=== PATIENT | male | born 1945 | race Caucasian/White ===

== ENCOUNTER 2018-10-29 11:53 | Inpatient (IN) | payer MEDICARE, SELFPAY ==
[2018-10-14 13:38] VITALS: BMI 32.5
[2018-10-29] VITALS (13 sets, daily range): BP systolic 112–176; BP diastolic 61–97; PULSE 68–88; RESP 11–20; TEMP 36.2–36.8; O2SAT 91–98; BMI 32.5
--- NOTE | 2018-10-29 | PATH_ITS ---
[facility] Accession Number: [id number] . 01 Material submitted: . LEFT PROXIMAL FEMURAL LESION . 01 Diagnosis: Left Proximal Femoral Lesion, Biopsy: Fragments of trabecular bone and normocellular for age marrow (30% cellularity) with maturing trilineage hematopoiesis. Few nodular interstitial lymphoid aggregates, reactive-type, also present, see microscopic description. No increased immature cells/blasts or increased plasma cells are identified. Negative for carcinoma. MRV/11/04/2018 . 01 Electronically signed: . Curt Vaz MD, Pathologist NPI- [id number] . 01 Gross description: . Received in formalin, labeled left proximal femoral lesion, are multiple fragments of vasquez gritty hard tissue (2.7 x 2.0 x 0.2 cm in aggregate). Filtered, decalcified, and entirely submitted in cassette A1. ([id number]) /MRV . 01 Microscopic: . Microscopic examination reveals normo-cellular marrow and a few scattered small interstitial and nodular lymphoid aggregates composed of small and mature lymphocytes. On immunohistochemical workup, these aggregates are composed of mixed lymphocytes, predominantly T lymphocytes (positive for CD3) and fewer B lymphocytes (positive for CD20). . Plasma cells are not increased and no increased immature cells/blasts population is present. . There is no evidence for carcinoma (the panepithelial marker VIKTOR is negative). D eeper levels have been examined. . Clinical correlation and correlation with radiologic studies is needed to ensure that the area of interest has been adequately sampled. . * This test was developed and its performance characteristics determined by [employer]. It has not been cleared or approved by the U.S. Food and Drug Administration. The FDA has determined that such clearance or approval is not necessary. This test is used for clinical purposes. It should not be regarded as investigational or for research. . 01 Pathologist provided ICD-10: M84.9 . 01 CPT . 198985, I15801, J89830 Performed at: [address] [facility] [address], [employer] [place], [place] [id number] MD Mg Smith MD Phone: [phone]
[2018-10-29] MEDS: ACETAMINOPHEN 325 MG TABLET 975 MG PO ×2 (12:47→20:45)
[2018-10-29] MEDS: CELECOXIB 200 MG CAPSULE PO (12:48)
[2018-10-29] MEDS: PREGABALIN 75 MG CAPSULE PO (12:48)
--- NOTE | 2018-10-29 13:00 | DI.RAD.S_ITS ---
PROCEDURE: XR HIP W PEL IF DONE LT 2V INDICATIONS: LEFT TOTAL HIP TECHNIQUE: AP pelvis and lateral view of the left hip acquired. COMPARISON: [facility], CR, [id number] W PEL IF PERFORMED, 12/26/2016, 16:05. FINDINGS: Bones: Patient is status post left hip arthroplasty, with hardware components in expected positions. The hip joint appears congruent. The visualized bony structures appear intact. Soft tissues: Overlying postoperative changes are noted. No suspicious soft tissue densities. IMPRESSION: Prior right hip arthroplasty, new left hip arthroplasty established in normal position with a surgical drain overlying the operative bed. Dictated by: Everardo Mari M.D. on 10/30/2018 at 7:46 Approved by: Everardo Mari M.D. on 10/30/2018 at 7:47
--- NOTE | 2018-10-29 13:00 | DI.RAD.S_ITS ---
PROCEDURE: XR PELVIS 1-2V INDICATIONS: INNER OP TECHNIQUE: Intra-operative view of the pelvis and hip acquired. COMPARISON: [facility], , PELVIS 1 OR 2 VIEWS, 12/26/2016, 14:57. FINDINGS: Bones: Intraoperative devices prior to placement of a left hip prosthesis, with the components in the expected positions. No fractures or suspicious bony lesions. Prior right hip arthroplasty hardware can be seen. Soft tissues: Overlying surgical retractors are present, along with other intraoperative changes. IMPRESSION: Normal intraoperative examination. Dictated by: Reggie Velázquez M.D. on 10/29/2018 at 16:53 Approved by: Reggie Vleázquez M.D. on 10/29/2018 at 16:54
[2018-10-29] MEDS: VANCOMYCIN 1,000 MG/200 ML FROZ.PIGGY 200 MG IV (14:02)
[2018-10-29] MEDS: LACTATED RINGERS 1,000 ML 42 ML IV ×2 (14:32→17:09)
--- NOTE | 2018-10-29 14:35 | PM.PREOP ---
Pre-operative Note Interval Note History & Physical reviewed/Exam performed by Physician: Yes Changes to H&P: No
--- NOTE | 2018-10-29 14:38 | P.OP_ITS ---
Operative Date/Time/Diagnoses Date of procedure: 10/29/18 Time of procedure: 14:58 Pre-op diagnosis: left hip osteoarthritis, sclerotic lesion left proximal femur Post-op diagnosis: same Procedure & Clinicians Procedure: left total hip arthroplasty, open left femoral biopsy intramedullary Same procedure as scheduled: Yes Indications: The patient has had progressively worsening left hip pain with radiographic changes consistent with arthritis. Non-operative management has failed and the patient has requested total hip replacement. He also has a sclerotic lesion on his left proximal femur which has been worked up and is felt to be benign. I told him that we will do a biopsy if indicated. The risks , benefits and alternatives to surgery were discussed with the patient prior to proceeding. Risks discussed included, but were not limited to, failure to relieve pain, leg length discrepancy, dislocation, stiffness, infection, nerve damage, deep venous thrombosis, pulmonary embolism, stroke, coma, heart attack, permanent paralysis and , as well as the potential need for eventual revision of the prosthetic. Surgeon: Neida Mariscal Field Sales Representative: Ana Moraes Anesthesia Type: Spinal Operative Notes Findings: Severe left hip osteoarthritis, adequate stability Closure Type: primary Prosthetic devices, grafts, tissues, transplants, or devices: mariscal and nephew anthology standard offset size 7, 56 mm R3 cup, 56 by 36, +0 Applied: drain(s) Estimated Blood Loss (mL): 250 Blood products transfused: none Procedure in detail: The patient was seen in the pre-operative area, where the patient identified the left hip as the operative site and this was marked with my initials. The patient received pre-operative antibiotics and was taken to the operating room and placed on the operative table in the right lateral decubitus position after satisfactory anesthesia. A curb and gutter laborer out was performed. The left leg was prepared from the ankle to the iliac crest with ChloroPrep in the usual fashion and draped through sterile drapes. The hip was approached through an approximately 20 cm incision centered over the greater trochanter and curving gently posteriorly as it went proximally. This was carried sharply to the fascia liz, which was divided and retracted with a self retaining retractor. The trochanteric bursa was excised with care being taken to avoid the sciatic nerve, which was identified and protected throughout the case. The short external rotators were incised and the capsulomuscular flap was raised and tagged for later repair. The hip was dislocated, and a femoral neck osteotomy performed approximately 15 mm above the lesser trochanter. Retractors were placed around the femur. The canal was opened with a box cutting osteotome, followed by a T handled reamer and a lateralizing reamer. The chili pepper broach was then used. A long pituitary rongeur was then used to reach down into the inter medullary canal along the lateral femoral cortex. There was an abnormal lesion in the inter medullary canal which was fairly sclerotic. A biopsy was obtained using a combination of the pituitary as well as a reverse cutting curette. The lesion was noted to be hard. A biopsy was sent to pathology in formalin. This was then followed by sequential broaching until there was good stability of the broach in the femur. I specifically examined the inter medullary canal to make sure that the lesion was not pushing my stem into varus. A small amount of residual cortical lesion was noted to be in the inter medullary canal but did not appear to be interfering with the stability or position of the prosthesis. Retractors were placed to expose the acetabulum. The labrum and central soft tissues were removed. Reaming was performed initially going up in 2 mm increments, then 1 mm increments until good bite was obtained with an odd sized reamer. The cup 1 mm larger than the last reamer was then inserted using the appropriate anteversion guides. A trial neutral liner was placed. The broach was placed in the canal. A trial head and neck were then placed and the hip relocated and checked for leg length and stability. An intraoperative film confirmed the component position and no evidence of fracture. The femoral prosthesis appeared to bypass the lesion without being pushed into varus. The patient was stable in the position of sleep, of squatting, and could be put through a range of motion with 45 degrees internal rotation without dislocation. At 90 degrees flexion, internal rotation to 70 degrees was possible before dislocation. This was felt to be satisfactory and the appropriate components were opened, and the trials were removed. The acetabular liner was impacted into position. The final stem was then impacted into the prepared femoral canal. A brief Betadine soak was performed while trialing with head options. The hip was meticulously irrigated with normal saline. Finally the femoral head was impacted onto the stem. The acetabulum was cleared of all material and the hip relocated one final time. The capsulomuscular flap was then repaired to the greater trochanter though an awl hole using the tag sutures. The short external rotators were repaired with a nonabsorbable suture. A deep drain was placed and brought out anteriorly. The fascia liz was closed with vicryl. The subcutaneous layer was closed with barbed sutures and SteriStrips. An Aquacel Ag dressing was applied and the patient was taken to recovery having tolerated the procedure well. Complications: none Condition: stable Disposition: Acute Care Plan for aftercare: The patient will be maintained on a standard total hip replacement protocol with weight bearing as tolerated and posterior hip precautions. The patient will receive Aspirin and sequential compression devices for DVT prophylaxis. The patient will be discharged home when safe for the home environment. Check pathology at postop appointment.
[2018-10-29] MEDS: CEFAZOLIN 2 GM/100 ML FROZ.PIGGY IV ×2 (15:20→23:56)
--- NOTE | 2018-10-29 15:53 | SUR.OPER ---
Right Lateral on padded OR bed. Gel axillary roll. Arms secured on padded armboard with pillow supporting top arm. Padded hip positioner braces x4 - anterior and posterior chest and pelvis. Additional gel pad used anterior pelvis. Gel pad under bottom leg from knee to foot and secured with tape over sheet.
[2018-10-29] MEDS: BUPIVACAINE 0.25% W/ EPI VIAL 50 ML INJ (15:59)
[2018-10-29] MEDS: BUPIVACAINE LIPOSOME 266 MG/20 ML VIAL INJ (16:00)
[2018-10-29] MEDS: TRANEXAMIC ACID 1,000 MG VIAL 2000 MG INJ ×2 (16:01→17:08)
[2018-10-29] MEDS: POVIDONE-IODINE 15 ML, SODIUM CHLORIDE 0.9% 250 ML TOP (16:01)
[2018-10-29] MEDS: SODIUM CHLORIDE IRRIG SOLUTION 250 ML, EPINEPHrine 1 MG IRR (16:02)
[2018-10-29] MEDS: LACTATED RINGERS 1,000 ML 125 ML IV (18:49)
--- NOTE | 2018-10-29 19:07 | PC.NURSE ---
Ana shift note: Patient awake and alert, admitted to room 203 from PACU s/p left RADHAMES. Pleasant and cooperative, [place]. at bedside providing supportive care. Oriented to room, environment, and plan of care. Demonstrated performance with IS, IVF initiated, and SCDs in place. NO c/o pain or nausea. CMS intact to LLE, excluding sensation. However, states sensation is increasing slowly. VSS and continue on cont. pulse ox per protocol. On RA 93%. Tolerating fluids. Call light within reach.
[2018-10-29] MEDS: ASPIRIN EC 81 MG TABLET PO (20:45)
[2018-10-29] MEDS: DOCUSATE 100 MG CAPSULE PO (20:45)
[2018-10-30 03:37] VITALS: BP 119/61; PULSE 87; RESP 18; TEMP 36.3; O2SAT 98
[2018-10-30 07:10] LABS: Hematocrit 43.3 % (41-53); Hemoglobin 14.7 g/dL (13.5-17.5)
[2018-10-30 07:38] VITALS: BP 141/82; PULSE 76; RESP 18; O2SAT 97
--- NOTE | 2018-10-30 08:01 | PC.NURSE ---
Addendum entered by Mary Burns R.N. 10/30/18 14:59: reviewed d/c instructions with pt at bedside, activity as tolerated, leave dressing in place till follow up, may shower with in place. Reviewed s/sx of infection. reviewed medications with last dose. answered all questions and concerns, left with all personal belongings. reviewed posterior hip precautions. assisted out with pig breeder via w/c to spouses car. Original Note: Addendum entered by Mary Burns R.N. 10/30/18 12:58: pt reports pain is 2/10 tolerable, Hemo vac removed by student RN, Tolerated without difficulty tip intact, clean dressing in place. Pt ready to go home was cleared by therapy this morning Original Note: Addendum entered by Mary Burns R.N. 10/30/18 10:20: pt abmbulated to bathroom, 1sba with fww, denies any dizziness or lightheaded. was able to void 100cc at this time in urinal and did have some leaking. Pt assisted back to bed rates pain 2/10. IV now sl after completion of last dose of abx Original Note: Day Shift Pt is A&O able to make needs known. denies any pain at this time. aqucel is cdi, has hemo vac in place with sero/sang drainage in tubing. denies any chest pain, sob and h/a. pt has not yet voided since surgery, reports that he has one kidney and declines that have a cath placed and that it usually takes a while, notified BOO Resendez. Call light within reach.
--- NOTE | 2018-10-30 08:07 | PM.DS.1 ---
History of Present Illness Date Patient Seen: 10/30/18 Time Patient Seen: 08:07 Chief complaint: left hip [id number] Narrative: Hospital day 2, postop day 1 following left total hip arthroplasty and open left femoral biopsy by Dr. Murguia. Patient has remained stable postoperatively. Using Tylenol only for pain. Patient has not voided since surgery. His bladder has been scanned by nurse with 450 mL at 0600 this morning. The patient is wanting to avoid catheterization of possible. He does have right kidney only. Left kidney was removed secondary to cancer over 30 years ago. He has not had any physical therapy yet. Patient is desiring to go home today. He does have status post right total hip. No stairs at home. He does have help at home. He is scheduled to go to [facility] in [place]. Discharge Providers Date of admission: 10/29/18 11:53 Primary care physician: Kareem Ward MD Consults: 10/29/18 06:00 Consult to Anesthesiology Routine Comment: Consulting Provider: Anesthesiologist Reason for consultation: Regional block for post operative pain control 10/29/18 18:34 Consult to Discharge Planning Routine Comment: Consult to Physical Therapy Evaluate & Treat Comment: Physician Instructions: post op RADHAMES protocol Consult to Respiratory Therapy Evaluate & Treat Comment: Physician Instructions: Evaluate and treat Discharge provider: Franck Wright PA-C Discharge Date: 10/30/18 Summary Discharge Diagnosis: Status post left total hip arthroplasty, open left femoral biopsy. Hospital Course: Patient brought to hospital on 10/29/2018 for above noted surgery. He remained stable postoperatively. Patient discharged to home on postop day 1 after he is able to void and was cleared by Physical therapy. Status at Discharge Cognitive/behavioral status at discharge: Alert, oriented in no acute distress. Functional status at discharge: uses cane/walker Overall status at discharge: patient is progressing back to baseline Time Spent with Patient Less than 30 minutes Exam Vital Signs (past 8 hours): - 10/30/18 03:37 Temperature 97.3 F L Pulse Rate 87 Respiratory Rate 18 Blood Pressure 119/61 Pulse Oximetry 98 Oxygen Delivery Method Room Air Oxygen Flow Rate 0 Narrative Exam Narrative: Legs. Aquacel dressing to left hip is dry without drainage or inflammation. Hemovac in place. No calf pain or swelling. Pulses symmetrical. Objective Labs Result Diagrams: 10/30/18 05:32 Labs: Laboratory Results - last 24 hr 10/30/18 05:32 Hgb 14.7 Hct 43.3 Discharge Plan Discharge Plan Patient Disposition: Home Discharge comment: Discharge to home today after Hemovac removed, patient able to void, cleared by physical therapy. Patient has prescription for oxycodone at home. Discharge Med Rec/Prescriptions Prescriptions: New acetaminophen 325 mg Tablet 975 mg PO TID Qty: 30 RF: 0 aspirin 81 mg Tablet,Delayed Release (Dr/Ec) 81 mg PO BID Qty: 60 RF: 0 Continued doxazosin 2 MG tablet 2 mg PO QAM Qty: 0 RF: 0 losartan 100 MG tablet 100 mg PO QAM Qty: 0 RF: 0 finasteride 5 MG tablet 5 mg PO QAM Qty: 0 RF: 0 Discontinued aspirin 81 MG tablet,delayed release (DR/EC) 81 mg PO DAILY RF: 0 Follow up/Referrals: Kareem Ward MD [Primary Care Provider] - Provider Discharge Instructions Diet: Diet as Tolerated Activity: Ambulate as tolerated. Use walker as needed. Total hip precautions x6 weeks postop. Cold/Heat Therapy: Cold pack to hip as needed. Skin/Wound/Dressing Care Dressing: Keep Aquacel dressing in place until postop visit. Visit Report/Discharge Packet Instructions: DI for Hip Replacement Discharge Data Primary Care Provider: Kareem Ward Attending Provider: Neida Murguia Admit Date/Time: 10/29/18 11:53
[2018-10-30] MEDS: ACETAMINOPHEN 325 MG TABLET 975 MG PO (08:42)
[2018-10-30 08:44] VITALS: BP 141/82; PULSE 84
[2018-10-30] MEDS: DOXAZOSIN 2 MG TABLET PO (08:44)
[2018-10-30] MEDS: FINASTERIDE 5 MG TABLET PO (08:45)
[2018-10-30 08:46] VITALS: BP 141/82; PULSE 84
[2018-10-30] MEDS: LOSARTAN 50 MG TABLET 100 MG PO (08:46)
[2018-10-30] MEDS: DOCUSATE 100 MG CAPSULE PO (08:46)
[2018-10-30] MEDS: CEFAZOLIN 2 GM/100 ML FROZ.PIGGY IV (08:47)
--- NOTE | 2018-10-30 08:50 | CM.DANOTE ---
DCP: Case received, EMR reviewed and met with patient. Introduced self and role. DCP template completed with information currently available. Patient is a 73 year old male who admitted yesterday morning to the care of the hospitalist team. PCP: Dr. Ward. Payer: confirmed: Medicare/[employer]. Patient came to hospital for left hip surgery. He has history of left hip osteoarthritis, and chronic left hip pain. Patient has been an avid walker, but has not been able to walk the distance he normally does due to increased pain. He is independent. Lives with his spouse. Already has outpatient physical therapy set up. P:Patient could be discharged home today as long as he voids. Lisa Marsh RN/C[employer] Concrete Finishing Supervisor
[2018-10-30] MEDS: ASPIRIN EC 81 MG TABLET PO (08:59)
--- NOTE | 2018-10-30 09:20 | PT.IIE ---
Current Diagnoses Unilateral primary osteoarthritis, left hip (10/29/18) Surgery Performed Operation Date: 10/29/18 14:00 Actual Procedures p Total Hip Arthroplasty(Left) - Neida Murguia MD Surgical History (Last Updated 10/14/18 @ 13:54 by Cate Bustillo, ALINE) History of hemorrhoidectomy (Acute) History of mastoidectomy (Acute ~1964) History of nephrectomy (Acute ~1996) History of tonsillectomy (Acute) History of total hip arthroplasty (Acute) Medical History (Last Updated 10/28/18 @ 12:41 by Yuliya Porras RN) Degenerative joint disease of left hip (Acute) Enlarged prostate (Acute) Former smoker (Acute) Heartburn (Acute) Hemorrhoid (Acute) Hypertension (Acute) Unilateral primary osteoarthritis, left hip (Acute) Physical Therapy Inpatient Evaluation/Re-Eval M1 PT/OT-IP Prior Functional Status Start: 10/30/18 12:01 Freq: NEEDED Status: Active Protocol: Document 10/30/18 09:20 AB (Rec: 10/30/18 12:13 AB [id number]) Medical Review Prior Functional Status Medical History Reviewed Yes Communication able to make needs known Mobility and Gait stated that he is independent with all mobilities and ambulation without AD but occasionally uses a SPC Social History Household Members spouse Living Arrangements House Number of Floors (Floors) One Floor Number of Stairs To Enter/Railing? 3 step with L rail ascending to enter Home Environment Standard Height Toilet Tub/Shower Home Equipment Front Wheel Walker Straight Cane Shower Seat without Backrest Hand Held Shower Grab Bars In Shower Employment Status Retired M2 PT-IP Current Condition Start: 10/30/18 12:01 Freq: NEEDED Status: Active Protocol: Document 10/30/18 09:20 AB (Rec: 10/30/18 12:13 AB [id number]) Physical Therapy Current Condition Current Condition Evaluation Date 10/30/18 Treatment Diagnosis s/p L RADHAMES posterior approach; difficulty in walking Onset Date Precautions Posterior Hip Precautions No Hip Flexion > 90 degrees No Hip Internal Rotation No Hip Adduction Weight Bearing Status Weight Bearing Status Weight Bear as Tolerated M3 PT-IP Subjective Start: 10/30/18 12:01 Freq: NEEDED Status: Active Protocol: Document 10/30/18 09:20 AB (Rec: 10/30/18 12:13 AB [id number]) Subjective Physical Therapy Visit Type Type Initial Evaluation Visit Start Time 09:20 Visit Stop Time 10:04 Total Visit Minutes 44 Number of STRIP PICKER Visits 0 Physical Therapy Visit Comments Patient Comments pt agreeable to do PT Patient Goals to go home Therapy Pain Assessment Pain Present Pain Present Denied Pain M4 PT-IP Mobility and Gait Start: 10/30/18 12:01 Freq: NEEDED Status: Active Protocol: Document 10/30/18 09:20 AB (Rec: 10/30/18 12:13 AB [id number]) PT-Bed Mobility Assessment Supine to Sit Supine to Sit Standby Assistance Sit to Supine Sit to Supine Standby Assistance Scooting Scooting to Edge of Bed Standby Assistance Scooting Up and Down in Bed Standby Assistance PT-Transfer Assessment Sit to and From Stand Sit to and from Stand Standby Assistance Equipment Transfer Assistive Device Gait Belt Front Wheeled Walker Orthotic/Prosthetic Devices or Brace: No Comments Mobility Comments completed sit <>stand x 4 reps SBA with cues needed initially and then was able to complete without cues. Gait Assessment Gait Gait Assistance Required: Standby Assistance Distance (Feet) 75 Able to Maintain Weight Bearing Status Yes During Gait Assistive Devices Assistive Device Gait Belt Front Wheeled Walker Orthotic/Prosthetic Devices or Brace: No Gait Deviations General Gait Pattern Antalgic Decreased Stride Length Decreased Feet Clearance Factors Limiting Gait Function Factors Limiting Gait Function Decreased Activity Tolerance Decreased Strength Limited Range of Motion Poor Balance Stair Climbing Assessment Evaluation Level of Assist On Stairs Standby Assistance Contact Guard Assistance Devices Stair Climbing Assistive Devices Left Railing Technique/Endurance Stair Climbing Direction Ascend and Descend Stair Climbing Technique Step to Step Number of Steps Climbed 3 Query Text: Stair Climbing Set # Repetitions (reps) 1 PT-Balance Assessment Sitting Balance and Reactions Static Sitting Balance Ability Good Dynamic Sitting Balance Ability Good Standing Balance and Reactions Static Standing Balance Ability Fair Dynamic Standing Balance Ability Fair Device Used FWW M5 PT-IP Objective Assessments Start: 10/30/18 12:01 Freq: NEEDED Status: Active Protocol: Document 10/30/18 09:20 AB (Rec: 10/30/18 12:13 AB [id number]) Orientation Orientation/Cognition Level of Alertness Alert Orientation Name Age Birthday Month Date Year Day of Week Place Situation Language Function Ability No Deficits Noted Safety Awareness Understands Safety Issues Memory Description No Deficits Noted Gross Range of Motion Lower Extremity ROM Assessment Left Impaired Impairments ue to hip precaution Strength Lower Extremity Strength Assessment Left Impaired Knee 4-/5 Coordination Assessment Gross Coordination Gross Coordination WNL Sensation Assessment Sensation Gross Sensation WNL Muscle Tone Muscle Tone WNL Yes M6 PT-IP Treatment Start: 10/30/18 12:01 Freq: NEEDED Status: Active Protocol: Document 10/30/18 09:20 AB (Rec: 10/30/18 12:13 AB [id number]) Physical Therapy Treatment Exercises Exercises Heel Slides Education Education Provided Precautions Weight Bearing Status Post-Op Packet Safety M7 PT-IP Assessment and Plan Start: 10/30/18 12:01 Freq: NEEDED Status: Active Protocol: Document 10/30/18 09:20 AB (Rec: 10/30/18 12:13 AB [id number]) PT Summary Assessment and Plan Potential Rehabilitation Potential Good Status of Condition at Evaluation Stable Summary Impairments Pain ROM Strength Balance Coordination Sensation Tone Cognition Bed Mobility Transfers Gait Activity Tolerance Assessment Summary pt doing well with mobility and requiring SBA. pt plans to go home today with spouse to assist him. pt may go home when medically stable. Goals Bed Mobility Goal Independent Transfer Goal Independent Front Wheeled Walker Gait Goal Independent Front Wheel Walker Gait Distance 150 Other Goals up/down 3 steps L rail ascending supervision Days to Meet Goals 3 Frequency of Treatment Frequency Of Treatment Twice a Day Treatment Plan Physical Therapy Treatment Plan Bed Mobility Training Transfer Training Gait Training Therapeutic Exercise Balance Retraining Post Op Education Discharge Planning Hot or Cold Pack Neuromuscular Re-ed Coordination Retraining Manual Therapy Other Recommendations and Next Treatment ambulation, stair climbing Focus Recommendations To Nursing Amount of Assist Needed Standby Assistance Discharge Recommendations PT Discharge Recommendations Home with Assistance Outpatient PT
[2018-10-30 12:20] VITALS: BP 153/85; PULSE 97; RESP 20; TEMP 36.3; O2SAT 96
== END 2018-10-30 13:00 | disposition home or self-care (01) | DRG 470 ==
PROVIDERS: Admitting Provider Orthopaedic Surgery; Family Provider Family Medicine; PCP Family Medicine; Visit Provider Orthopaedic Surgery
PROC: 0SRB0JZ Replacement of Left Hip Joint with Synthetic Substitute, Open Approach (ICD-10-PCS; CPT 27130; principal; 2018-10-29 14:00)
DX: M16.12 Unilateral primary osteoarthritis, left hip (principal); M89.9 Disorder of bone, unspecified; Z90.5 Acquired absence of kidney
CPT/HCPCS: 36415; 72170; 73502; 85014; 85018; 88305; 88341; 88342; 94762; 97161; 97530; C1776; C9290; J0171; J0690; J1100; J2250; J2405; J2704; J3010; J3370